=== PATIENT | male | born 1995 | race American Indian/Alaskan Native ===

== ENCOUNTER 2016-04-14 04:55 | Emergency (ER) | payer SELFPAY ==
[2016-04-14 05:13] VITALS: BP 128/92
--- NOTE | 2016-04-14 10:07 | Emergency Department Report ---
Chief Complaint: Urogenital-Male Stated Complaint: GENITAL PAIN Time Seen by Provider: 04/14/16 09:24 - HPI History of Present Illness: 21-year-old male presents today with yellow penile discharge with minimal pain of penile opening 3-4 days. Patient states that he had unprotected sex with his partner who has recently been diagnosed with gonorrhea. Denies testicular pain or swelling. Denies history of STDs. Denies rash or genital region. Denies fever, chills, nausea, vomiting, chest pain, shortness of breath, abdominal pain. - ROS Review of Systems: Per HPI - Exam Vital Signs: Vital Signs 04/14/16 04:59 Temperature 98.2 F Pulse Rate 60 Respiratory 61 H Rate Blood Pressure 128/92 [Right] O2 Sat by Pulse 98 Oximetry Physical Exam: General: 21-year-old female in no acute distress. Well-developed, well- nourished. CV: Regular rate and rhythm. No murmurs rubs or gallops. Lungs: Clear to auscultation bilaterally. Abdomen: No tenderness to palpation. No guarding or rebound tenderness. Normal bowel sounds. Negative for CVA tenderness bilaterally. Genital: Normal external genitalia. No drainage or bleeding noted. No rash noted. Mini Neuro: Alert and oriented 3. GCS at 15. MSE screening note: Focused history and physical exam performed. Due to findings the following was ordered: ED Disposition for MSE Disposition: MEDICAL SCREENING EXAM-LEFT Condition: Stable Referrals: PRIMARY CARE, [Primary Care Provider] - 3-5 Days
--- NOTE | 2016-04-14 12:23 | Emergency Department Report ---
HPI - General Chief Complaint: Urogenital-Male Time Seen by Provider: 04/14/16 09:24 - HPI HPI: 21-year-old male presents today with yellow penile discharge with minimal pain of penile opening 3-4 days. Patient states that he had unprotected sex with his partner who has recently been diagnosed with gonorrhea. Denies testicular pain or swelling. Denies history of STDs. Denies rash of genital region. Denies fever, chills, nausea, vomiting, chest pain, shortness of breath, abdominal pain, urinary symptoms. ED Past Medical Hx - Past Medical History Previous Medical History?: No Additional medical history: STI - Surgical History Past Surgical History?: No - Social History Smoking Status: Never Smoker Substance Use Type: None - Medications Home Medications: Home Medications Medication Instructions Recorded Confirmed Last Taken Type Acetaminophen/Codeine [Tylenol #3] 1 tab PO Q6H PRN #12 tab 09/05/15 Unknown Rx Valacyclovir HCl [Valtrex] 1,000 mg PO BID #20 tab 09/05/15 Unknown Rx ED Review of Systems ROS: Stated complaint: GENITAL PAIN Other details as noted in HPI Constitutional: denies: chills, fever, malaise Eyes: denies: eye pain ENT: denies: ear pain, throat pain, congestion Respiratory: denies: cough, shortness of breath, wheezing Cardiovascular: denies: chest pain, palpitations Endocrine: no symptoms reported Gastrointestinal: denies: abdominal pain, nausea, vomiting Genitourinary: discharge. denies: urgency, dysuria, frequency, hematuria, testicular pain, testicular mass Skin: denies: rash Neurological: denies: headache, weakness Physical Exam - Physical Exam Vital Signs: Vital Signs 04/14/16 04:59 Temperature 98.2 F Pulse Rate 60 Respiratory 61 H Rate Blood Pressure 128/92 [Right] O2 Sat by Pulse 98 Oximetry Physical Exam: GENERAL: The patient is well-developed and well-nourished. Patient is in NAD. HEAD: Normocephalic. Atraumatic. CHEST/LUNGS: Clear to auscultation throughout. HEART/CARDIOVASCULAR: Regular rate and rhythm. No murmurs, rubs or gallops. ABDOMEN: Abdomen is soft, nontender. Bowel sounds normoactive. No guarding or rebound tenderness. GENITAL: Normal external genitalia. No discharge or bleeding noted. EXTREMITIES: Peripheral pulses intact. Capillary refill less than 2 seconds. NEURO: Alert and oriented x 3. Normal gait. ED Course Vital Signs 04/14/16 04:59 Temperature 98.2 F Pulse Rate 60 Respiratory 61 H Rate Blood Pressure 128/92 [Right] O2 Sat by Pulse 98 Oximetry ED Medical Decision Making - Lab Data Vital Signs 04/14/16 04:59 Temperature 98.2 F Pulse Rate 60 Respiratory 61 H Rate Blood Pressure 128/92 [Right] O2 Sat by Pulse 98 Oximetry Lab Results 04/14/16 Range/Units 12:21 Urine Color Yellow (Yellow) Urine Turbidity Clear (Clear) Urine pH 7.0 (5.0-7.0) Ur Specific [place] 1.027 (1.003-1.030) Urine Protein <15 mg/dl (Negative) mg/dL Urine Glucose (UA) Neg (Negative) mg/dL Urine Ketones Neg (Negative) mg/dL Urine Blood Neg (Negative) Urine Nitrite Neg (Negative) Urine Bilirubin Neg (Negative) Urine Urobilinogen < 2.0 (<2.0) mg/dL Ur Leukocyte Esterase Neg (Negative) Urine WBC (Auto) 1.0 (0.0-6.0) /HPF Urine RBC (Auto) 1.0 (0.0-6.0) /HPF U Epithel Cells (Auto) < 1.0 (0-13.0) /HPF Urine Mucus Few /HPF - Medical Decision Making 21-year-old female presents today with penile discharge. He states his partner has recently been diagnosed with gonorrhea. His urinalysis is within normal limits. Patient has been treated with ceftriaxone and azithromycin. Patient is in no acute distress at this time. He will be discharged home and is encouraged to follow up with a primary care provider. He is encouraged to return to the emergency room for any worsening symptoms. Critical care attestation.: If time is entered above; I have spent that time in minutes in the direct care of this critically ill patient, excluding procedure time. ED Disposition Clinical Impression: Penile discharge Disposition: DISCHARGED TO HOME OR SELFCARE Is pt being admited?: No Does the pt Need Aspirin: No Condition: Stable Instructions: Gonococcal Urethritis (ED), Chlamydia Infection (ED) Additional Instructions: Follow-up with primary care provider. Return to emergency department if symptoms worsen. Referrals: PRIMARY CARE [Primary Care Provider] - 3-5 Days [facility] [Outside] - 3-5 Days Forms: Work/School Release Form(ED), STI Treatment and Prevention Time of Disposition: 14:10
[2016-04-14 13:01] LABS: Bilirubin,Urine NEG (Negative); Blood,Urine NEG (Negative); Ketones,Urine NEG (Negative); Leukocyte Esterase,Urine NEG (Negative); Mucus,Urine FEW /HPF; Nitrite,Urine NEG (Negative); Protein,Urine <15 mg/dL mg/dL (Negative); Urobilinogen,Urine < 2.0 mg/dL (<2.0)
[2016-04-14] MEDS ORDERED: ZITHROMAX PO ONE (13:05)
[2016-04-14] MEDS ORDERED: ROCEPHIN IM ONE (13:05)
[2016-04-14] MEDS ORDERED: XYLOCAINE 1% MPF 5 mL INFILTRATI ONE (13:05)
== END 2016-04-14 14:16 | disposition home or self-care (01) ==
LOC: ED 04:55
DX: R36.9 Urethral discharge, unspecified (principal)
CPT/HCPCS: 81001; 87591; 96372; 99283; J0696

== ENCOUNTER 2016-06-10 23:49 | Emergency (ER) | payer SELFPAY ==
[2016-06-11 00:16] VITALS: BP 146/97
[2016-06-11 00:46] LABS: Bilirubin,Urine NEG (Negative); Blood,Urine NEG (Negative); Ketones,Urine NEG (Negative); Leukocyte Esterase,Urine NEG (Negative); Mucus,Urine FEW /HPF; Nitrite,Urine NEG (Negative); Protein,Urine <15 mg/dL mg/dL (Negative); Urobilinogen,Urine < 2.0 mg/dL (<2.0); WBC,Urine < 1.0 /HPF (0.0-6.0)
[2016-06-11] MEDS ORDERED: ROCEPHIN ONE (04:03)
[2016-06-11] MEDS ORDERED: XYLOCAINE 1% MPF 5 mL ONE (04:03)
[2016-06-11] MEDS ORDERED: ZITHROMAX ONE (04:04)
== END 2016-06-11 04:45 ==
LOC: ED 23:49
DX: R10.2 Pelvic and perineal pain (principal); Z53.21 Procedure and treatment not carried out due to patient leaving prior to being seen by health care provider
CPT/HCPCS: 81001; J0696

== ENCOUNTER 2016-11-22 02:20 | Emergency (ER) | payer SELFPAY ==
--- NOTE | 2016-11-22 05:54 | Emergency Department Report ---
HPI - General Chief Complaint: Sore Throat Time Seen by Provider: 11/22/16 04:57 - HPI HPI: Patient here complaining of sore throat going on for 4 days. He denies any drooling. Reports nasal congestion. Denies any cough or chest pain. Sore throat is 5 out of 10 on and off and feels achy. Worse with swallowing. Denies any fever or chills. Denies any chest pain or shortness of breath. No [id number] medication taken. ED Past Medical Hx - Past Medical History Previous Medical History?: Yes Additional medical history: STI - Surgical History Past Surgical History?: No - Family History Family history: no significant - Social History Smoking Status: Never Smoker Substance Use Type: None - Medications Home Medications: Home Medications Medication Instructions Recorded Confirmed Last Taken Type Acetaminophen/Codeine [Tylenol #3] 1 tab PO Q6H PRN #12 tab 09/05/15 Unknown Rx Valacyclovir HCl [Valtrex] 1,000 mg PO BID #20 tab 09/05/15 Unknown Rx Cetirizine HCl [ZyrTEC] 10 mg PO QDAY #14 capsule 11/22/16 Unknown Rx Fluticasone [Flonase] 1 spray NS QDAY #1 bottle 11/22/16 Unknown Rx ED Review of Systems ROS: Stated complaint: THROAT PAIN Other details as noted in HPI Comment: All other systems reviewed and negative Constitutional: denies: chills, fever Eyes: denies: eye pain, eye discharge ENT: throat pain, congestion. denies: ear pain, dental pain, epistaxis Respiratory: cough. denies: shortness of breath, SOB with exertion, SOB at rest , stridor, wheezing Cardiovascular: denies: chest pain, palpitations, dyspnea on exertion, edema, syncope Gastrointestinal: denies: abdominal pain, nausea, vomiting, diarrhea, constipation Musculoskeletal: denies: back pain, joint swelling, arthralgia, myalgia Skin: denies: rash Neurological: denies: headache, weakness, numbness, paresthesias, confusion, abnormal gait, vertigo Physical Exam - Physical Exam Vital Signs: Vital Signs 11/22/16 03:29 Temperature 97.3 F L Pulse Rate 60 Respiratory 16 Rate Blood Pressure 131/86 O2 Sat by Pulse 95 Oximetry General: This is a 21-year-old male well-nourished well-developed in no acute distress. Physical Exam: Head: Normocephalic atraumatic Ears:BIateral TM congested with no erythema. Lateral EAC without redness swelling , NO DRAINAGE. No mastoid bone tenderness. Bilateral tragus nontender to palpate Mouth: Moist, no pharyngeal erythema or exudate . Uvula is midline, oral airways patent. Tongue is normal and no peritonsillar abscess. Neck: Nontender to palpate, supple, normal range of motion. No adenopathy. No c- spine tenderness. Nose: Bilateral nasal mucosa pale and boggy with clear drainage .maxillary and frontal sinuses nontender to palpate. Eyes: Sclerae and conjunctiva without injection. Bilateral pupils equal and reactive to light. Bilateral lids are normal. Normal accommodation.BEOMI Lungs: Clear to auscultate bilaterally, no rhonchi wheezes or rales. Normal work of breathing and no chest wall tenderness CV: S1, S2. Regular rate and rhythm negative murmur. Capillary refill is less than 3 seconds Skin: Clean dry and intact, no rashes or lesions Psych: Normal mood and behavior ED Course Vital Signs 11/22/16 03:29 Temperature 97.3 F L Pulse Rate 60 Respiratory 16 Rate Blood Pressure 131/86 O2 Sat by Pulse 95 Oximetry - Reevaluation(s) Reevaluation #1: 11/22/16 06:47 stable throughout ED stay ED Medical Decision Making - Medical Decision Making ED Course: Patient here complaining of sore throat and physical findings for allergic rhinitis. As discussed the patient along with treatment plan. He voices understanding. Patient discharged home with prescription for Zyrtec and Flonase and to follow up with primary care physician and if he does not have a primary care physician he can follow up at [facility]. Assessment/plan 1. Allergic rhinitis 2. Acute pharyngitis Patient discharged home with prescription for Zyrtec and Flonase and to gargle warm salt water twice daily to prevent sore throat. Discharge home in stable condition Critical care attestation.: If time is entered above; I have spent that time in minutes in the direct care of this critically ill patient, excluding procedure time. ED Disposition Clinical Impression: Allergic rhinitis Qualifiers: Chronicity: acute Allergic rhinitis trigger: unspecified Allergic rhinitis seasonality: unspecified seasonality Qualified Code(s): J30.9 - Allergic rhinitis, unspecified Acute pharyngitis Qualifiers: Pharyngitis/tonsillitis etiology: unspecified etiology Qualified Code(s): J02.9 - Acute pharyngitis, unspecified Disposition: DC-01 TO HOME OR SELFCARE Is pt being admited?: No Does the pt Need Aspirin: No Condition: Stable Instructions: Allergic Rhinitis (ED), Pharyngitis (ED) Additional Instructions: Please gargle with warm salt water twice daily Take Zyrtec and Flonase as instructed Prescriptions: Cetirizine HCl [ZyrTEC] 10 mg PO QDAY #14 capsule Fluticasone [Flonase] 1 spray NS QDAY #1 bottle Referrals: [facility] [Outside] - 11/23/16 Forms: Work/School Release Form(ED)
[2016-11-22 07:06] VITALS: BP 135/82
== END 2016-11-22 07:07 | disposition home or self-care (01) ==
LOC: ED 02:20
DX: J30.9 Allergic rhinitis, unspecified (principal); J02.9 Acute pharyngitis, unspecified
CPT/HCPCS: 87116; 87430; 99282

== ENCOUNTER 2019-04-02 11:11 | Emergency (ER) | payer OTHER ==
[2019-04-02] MEDS ORDERED: NEOMY 3.5 MG/BACIT 400 UNITS/POLY B 5000 UNITS/GM OINT PACKET TP ONE (13:28)
[2019-04-02] MEDS ORDERED: TETANUS,DIPH,PERTUSS(ACELL) VACCINE 0.5 ML SYRINGE IM ONE (13:28)
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
[2019-04-02 13:56] VITALS: BP 117/76
== END 2019-04-02 13:50 | disposition home or self-care (01) ==
LOC: ED 11:11
DX: S39.012A Strain of muscle, fascia and tendon of lower back, initial encounter (principal); S60.511A Abrasion of right hand, initial encounter; S60.811A Abrasion of right wrist, initial encounter; Z79.899 Other long term (current) drug therapy; V49.49XA Driver injured in collision with other motor vehicles in traffic accident, initial encounter; Y93.89 Activity, other specified; Y92.410 Unspecified street and highway as the place of occurrence of the external cause; Y99.8 Other external cause status
CPT/HCPCS: 90471; 90715; A6250